=== PATIENT | male | born 1990 | race Hispanic/Latino ===

== ENCOUNTER 2019-10-28 12:12 | Inpatient (IN) | payer SELFPAY ==
[2019-10-28] VITALS (24 sets, daily range): BP systolic 112–147; BP diastolic 45–78
[2019-10-28] MEDS ORDERED: ONDANSETRON HCL 4 MG/2 ML VIAL ONE ×2 (12:28→15:52)
[2019-10-28] MEDS ORDERED: MORPHINE SULFATE 4 MG/1ML SYG ONE (12:29)
[2019-10-28] MEDS ORDERED: CEFAZOLIN SODIUM 1 GM VIAL ONE (12:45)
[2019-10-28] MEDS ORDERED: TETANUS/DIPHTHERIA TOXOID [ADULT] 0.5 ML VIAL IM ONE (12:46)
[2019-10-28 12:47] LABS: BASOPHILS % (AUTO) 0.3 % (0.0-5.0); EOSINOPHILS % (AUTO) 1.9 % (0.0-8.0); HEMATOCRIT 46.2 % (42-54); LYMPHOCYTES % (AUTO) 12.1 % (21.0-51.0); MEAN CORPUSCULAR VOLUME 94.1 fL (79-99); MONOCYTES % (AUTO) 5.7 % (3.0-13.0); NEUTROPHILS % (AUTO) 79.8 % (40.0-77.0); PLATELET COUNT (AUTO) 107 K/uL (130-400); RED BLOOD CELL COUNT(AUTO) 4.91 MIL/uL (4.50-6.20); RED CELL DISTRIBUTION WIDTH 11.6 % (11.0-15.5); WHITE BLOOD COUNT (AUTO) 11.3 K/uL (4.8-10.8)
[2019-10-28] MEDS ORDERED: SODIUM CHLORIDE 0.9% 100 ML IV ONE (12:50)
[2019-10-28 12:59] LABS: CARBON DIOXIDE 29 mmol/L (21-32); CHLORIDE 105 mmol/L (101-111); CREATININE 1.2 mg/dL (0.5-1.5); GLOMERULAR FILTR. RATE CALC 76 mL/min (>60); GLUCOSE,RANDOM 91 mg/dL (70-105); POTASSIUM 3.5 mmol/L (3.5-5.1); SODIUM SERUM 141 mmol/L (136-145); UREA NITROGEN, BLOOD 23 mg/dL (7-18)
[2019-10-28 13:00] LABS: INR 0.91 (0.85-1.15); PARTIAL THROMBOPLASTIN TIME 23.7 SEC (26.3-35.5); PROTHROMBIN TIME 9.9 SEC (9.6-11.6)
[2019-10-28 13:04] LABS: ALANINE AMINOTRANSFERASE 16 U/L (12-78); ALBUMIN 4.5 g/dL (3.5-5.0); ALCOHOL, BLOOD < 3 mg/dL (0-10); ASPARTATE AMINOTRANSFERASE 18 U/L (10-37); CREATINE KINASE, TOTAL 182 U/L (21-232); TOTAL PROTEIN, SERUM 7.7 g/dL (6.0-8.3)
[2019-10-28] MEDS ORDERED: METOCLOPRAMIDE 10 MG/2 ML VIAL ONE (13:36)
[2019-10-28] MEDS ORDERED: SODIUM CHLORIDE 0.9% 50 ML IV ONE (13:38)
[2019-10-28] MEDS: SODIUM CHLORIDE 0.9% 1000ML 1,000 ML IV SCH ×3 (14:14→23:36)
[2019-10-28] MEDS ORDERED: ROCURONIUM 10MG/1ML SYR 10 MG/ML ML ONE (15:50)
[2019-10-28] MEDS ORDERED: SUCCINYLCHOLINE CHLORIDE 20 MG/ML 10 ML VIAL ONE ×2 (15:50)
[2019-10-28] MEDS ORDERED: MIDAZOLAM HCL 1 MG/ML 2ML VIAL ONE (15:51)
[2019-10-28] MEDS ORDERED: FENTANYL CITRATE PF 50 MCG/1 ML 2ML VIAL ONE ×2 (15:51→16:14)
[2019-10-28] MEDS ORDERED: ROPIVACAINE 0.5% 5MG/ML 30ML IJ ONE (15:55)
[2019-10-28] MEDS ORDERED: NEOSTIGMINE 5MG/5ML SYR IV ONE (17:14)
[2019-10-28] MEDS ORDERED: GLYCOPYRROLATE 1 MG/5 ML SYRINGE ONE (17:14)
[2019-10-28] MEDS ORDERED: DEXAMETHASONE SOD PHOSPHATE 10MG/ML 1ML VIAL ONE (17:18)
[2019-10-28] MEDS ORDERED: MEPERIDINE-PF 25 MG/ML SYG ONE (18:17)
[2019-10-28] MEDS ORDERED: KETOROLAC TROMETHAMINE 30MG/ML ONE (18:27)
--- NOTE | 2019-10-28 19:15 | NUR ---
POST OP NOTE RECEIVED PATIENT FROM PACU VIA BED, PATIENT AWAKE, ALERT, OX3, NO SOB , NO C/O PAIN AT THIS TIME, NOT WANTING TO ANSWER FAMILY HISTORY QUESTIONS , PATIENTS STATES IM SLEEPY , LIMITED HISTORY, RIGHT AC 20 GAUGE WITH IVF INFUSING WELL, DRESSING LEFT LEG D/I, LLE WITH NUMBNESS, APPLY SCD ORDERED , TEACH PATIENT DEEP BREATHING EXERCISES, TEACH PLAN OF CARE AND EXPECTED OUTCOME, PATIENT VERBALIZES UNDERSTANDING VIA TEACH BACK
[2019-10-28] MEDS ORDERED: ACETAMINOPHEN-CODEINE 300/30MG TAB PO PRN (19:45)
[2019-10-28] MEDS: FAMOTIDINE/PF 20 MG/2 ML VIAL IV SCH (21:13)
[2019-10-28] MEDS: CEFAZOLIN SODIUM 1 GM VIAL IVP SCH (21:13)
[2019-10-29] VITALS: BP 119/62
[2019-10-29 00:54] LABS: APPEARANCE,URINE Clear (CLEAR); BILIRUBIN,URINE Negative (NEGATIVE); COLOR,URINE Yellow (YELLOW); GLUCOSE, URINE (UA) Negative (NEGATIVE); KETONES,URINE Negative (NEGATIVE); LEUKOCYTE ESTERASE ,URINE Negative (NEGATIVE); NITRATE,URINE Negative (NEGATIVE); OCCULT BLOOD,URINE Negative (NEGATIVE); PROTEIN,URINE Negative (NEGATIVE)
[2019-10-29 01:00] VITALS: BP 113/62
[2019-10-29 01:02] LABS: AMPHET/METH SCREEN,URINE NEGATIVE (NEGATIVE); BARBITURATE SCREEN, URINE NEGATIVE (NEGATIVE); BENZODIAZEPINES SCREEN,URINE POSITIVE (NEGATIVE); CANNABINOID SCREEN,URINE POSITIVE (NEGATIVE); COCAINE SCREEN,URINE NEGATIVE (NEGATIVE); OPIATE SCREEN,URINE NEGATIVE (NEGATIVE); PHENCYCLIDINE SCREEN,URINE NEGATIVE (NEGATIVE)
[2019-10-29 03:45] VITALS: BP 130/69
[2019-10-29] MEDS: CEFAZOLIN SODIUM 1 GM VIAL IVP SCH ×2 (04:20→13:39)
[2019-10-29 04:42] LABS: BASOPHILS % (AUTO) 0.1 % (0.0-5.0); HEMATOCRIT 42.7 % (42-54); LYMPHOCYTES % (AUTO) 14.3 % (21.0-51.0); MEAN CORPUSCULAR HEMOGLOBIN 31.6 pg (27.0-33.0); MEAN CORPUSCULAR HGB CONC 33.3 g/dL (32.0-36.0); MEAN CORPUSCULAR VOLUME 94.9 fL (79-99); MONOCYTES % (AUTO) 6.8 % (3.0-13.0); NEUTROPHILS % (AUTO) 78.6 % (40.0-77.0); PLATELET COUNT (AUTO) 116 K/uL (130-400); RED CELL DISTRIBUTION WIDTH 11.5 % (11.0-15.5); WHITE BLOOD COUNT (AUTO) 10.7 K/uL (4.8-10.8)
[2019-10-29 05:14] LABS: ALBUMIN 3.8 g/dL (3.5-5.0); BILIRUBIN,TOTAL 0.9 mg/dL (0.2-1.0); CREATININE 1.1 mg/dL (0.5-1.5); POTASSIUM 4.3 mmol/L (3.5-5.1); TOTAL PROTEIN, SERUM 6.7 g/dL (6.0-8.3)
[2019-10-29 08:28] VITALS: BP 124/62
[2019-10-29] MEDS: FAMOTIDINE/PF 20 MG/2 ML VIAL IV SCH (08:47)
--- NOTE | 2019-10-29 08:54 | NUR ---
ASSESSMENT DONE GOOD CAPILLARY REFILL NOTED ON BOTH EXTREMITIES. PATIENT DENIES ANY PAIN AT THIS MOMENT. PT PENDING TO TEACH CRUTCHES TRAINING.
[2019-10-29] MEDS: SODIUM CHLORIDE 0.9% 1000ML 1,000 ML IV SCH (10:14)
[2019-10-29 11:00] VITALS: BP 134/67
[2019-10-29] MEDS ORDERED: CEPH250T PO (16:26)
[2019-10-29 16:48] VITALS: BP 124/77
--- NOTE | 2019-10-29 17:04 | NUR ---
D/C PLAN CM spoke to pt regarding d/c planning. Pt is ind. and lives with spouse. States spouse can assist in care as needed. Reports accident happened on employers property and will be following up with his appointed [employer]. States spouse can assist in care as needed. Ind. with ADL's and denies having any DME. States he ambulated with crutches and feels safe to return home. No needs verbalized or identified. CM to f/u. Addendum: 10/29/19 at 1706 by CHAPO DE OLIVEIRA CM Amended: Links added.
--- NOTE | 2019-10-29 17:36 | NUR ---
DISCHARGE PATIENT GIVEN DISCHARGE INSTRUCTIONS AND EDUCATION ON FOLLOW UP APPOINTMENTS, NEW RX, WBAT, NO DRESSING CHANGES, KEEP DRESSING DRY AND CLEAN. PATIENT VERBALIZED UNDERSTANDING OF ALL EDUCATION GIVEN VIA TEACH BACK. NO DISTRESS NOTED UPON DISCHARGE, ALL BELONGINGS TAKEN WITH,.
== END 2019-10-29 17:30 | disposition home or self-care (01) | DRG 494 ==
LOC: EDH 12:12 → EDHIP 12:13 → 3AH 19:15
PROVIDERS: ADMIT Hospitalist; ATTEND Hospitalist
PROC: 0QSH04Z Reposition Left Tibia with Internal Fixation Device, Open Approach (ICD-10-PCS; principal; 2019-10-28 16:32)
PROC: 3E0T3BZ Introduction of Anesthetic Agent into Peripheral Nerves and Plexi, Percutaneous Approach (ICD-10-PCS; 2019-10-28 16:32)
PROC: 3E0234Z Introduction of Serum, Toxoid and Vaccine into Muscle, Percutaneous Approach (ICD-10-PCS; 2019-10-28 16:32)
DX: S82.252B Displaced comminuted fracture of shaft of left tibia, initial encounter for open fracture type I or II (principal); Z23 Encounter for immunization; W28.XXXA Contact with powered lawn mower, initial encounter; Y93.89 Activity, other specified; Y92.008 Other place in unspecified non-institutional (private) residence as the place of occurrence of the external cause; Y99.8 Other external cause status
CPT/HCPCS: 36415; 73590; 80053; 80305; 81003; 82550; 85025; 85610; 85730; 86850; 86900; 86901; 90714; 93005; 97039; A4344; A4606; G0378; J0330; J0690; J1100; J1885; J2175; J2250; J2270; J2405; J2710; J2765; J2795; J3010; J3490

== ENCOUNTER 2023-11-02 09:49 | Emergency (ER) | payer SELFPAY ==
[~2023-11-02] VITALS: Ht 182.9 cm; Wt 90.7 kg
[~2023-11-02 09:49] MED LIST: CEPH250T PO
[2023-11-02] MEDS: OCTYL 2-CYANOACRYLATE 1 EACH TP ONE (11:02)
[2023-11-02] MEDS: ketOROlac 15MG/ML VIAL (15MG/ML) IM ONE (11:06)
[2023-11-02] MEDS ORDERED: KETO10TA2 PO (11:32)
[2023-11-02 11:40] VITALS: BP 134/68; PULSE 56; RESP 16; TEMP 98.6; O2SAT 98
== END 2023-11-02 11:56 | disposition home or self-care (01) ==
LOC: EDH 09:49
DX: M79.89 Other specified soft tissue disorders (principal); Z79.899 Other long term (current) drug therapy; X58.XXXA Exposure to other specified factors, initial encounter; Y93.89 Activity, other specified; Y92.89 Other specified places as the place of occurrence of the external cause; Y99.8 Other external cause status
CPT/HCPCS: 99283; 73130; 96372; J1885